=== PATIENT | male | born 1980 | race Caucasian/White ===

== ENCOUNTER 2024-01-15 17:35 | Inpatient (IN) | payer BC ==
--- NOTE | 2024-01-15 18:02 | ED ---
Chest Pain HPI - General Chief Complaint: Chest Pain Stated Complaint: Chest pain/R leg pain Time Seen by Provider: 01/15/24 17:59 Source: patient Mode of arrival: ambulatory Limitations: no limitations - History of Present Illness Initial Comments: This patient is a 43-year-old man who presents for evaluation of substernal chest pain that started last night was present for hours and then resolved but recurred this morning. Patient describes it as a tight or squeezing feeling it is now constant. He has not noted worsening or relieving factors. He also has some pain and feels that his right ankle is swollen. Patient denies any injury. He states that he had similar chest pain about a week ago and was seen at [facility] and they were not able to give him an answer. History notable for having an 85% lesion of the LAD which was stented in the early at the [facility]. Patient states he smokes about 1 pack of cigarettes per we ek. There is family history of cardiac disease. MD Complaint: chest pain Onset/Timin -: hour(s) Onset: during rest Pain Location: left chest Pain Radiation: none Severity: severe Quality: tightness Consistency: constant Improves With: nothing Worsens With: nothing Other Symptoms: other (Left leg pain and swelling) Treatments Prior to Arrival: none - Related Data Home Medications Medication Instructions Recorded Confirmed Albuterol Inhaler [Ventolin Hfa 2 puff INHALATION RT-Q6H PRN 01/15/24 01/15/24 Inhaler] Aspirin 81 mg PO DAILY 01/15/24 01/15/24 Atorvastatin Calcium [Lipitor] 40 mg PO HS 01/15/24 01/15/24 Metoprolol Tartrate [Lopressor] 25 mg PO BID 01/15/24 01/15/24 PARoxetine [Paxil] 20 mg PO DAILY 01/15/24 01/15/24 lisinopriL [Zestril] 5 mg PO DAILY 01/15/24 01/15/24 Previous Rx's Medication Instructions Recorded Nitroglycerin Sl Tabs [Nitrostat] 0.4 mg SUBLINGUAL Q5M PRN 10 Days 01/16/24 #10 tab Colchicine [Colcrys] 0.6 mg PO DAILY 30 Days #30 each 01/19/24 Melatonin 5 mg PO HS tab 01/19/24 Pantoprazole [Protonix] 40 mg PO AC-BRKFST 30 Days #30 tab 01/19/24 methylPREDNISolone Dose Pack 16 mg PO DAILY 5 Days #1 tab 01/19/24 [Medrol Dose Pack] Allergies Allergy/AdvReac Type Severity Reaction Status Date / Time Sulfa (Sulfonamide Allergy Anaphylaxis Verified 01/15/24 21:11 Antibiotics) Review of Systems ROS Statement: Those systems with pertinent positive or pertinent negative responses have been documented in the HPI. ROS Other: All systems not noted in ROS Statement are negative. Constitutional: Denies: fever, chills Respiratory: Denies: cough, dyspnea Cardiovascular: Reports: as per HPI, chest pain, edema. Denies: palpitations, syncope Gastrointestinal: Denies: abdominal pain, nausea, vomiting, diarrhea Genitourinary: Denies: dysuria, hematuria Musculoskeletal: Reports: as per HPI, myalgia. Denies: back pain Skin: Denies: rash Neurological: Denies: headache, weakness, numbness EKG Findings - EKG Results: EKG: interpreted by ERMD, sinus rhythm, normal axis, normal QRS EKG shows: tachycardia (Rate 111 bpm) - Blocks, Wake, Hypertrophy, ST Abn: Repolarization changes or abnormalities: nonspecific abnormality, ST segment, and/or T wave Past Medical History Past Medical History: Hypertension Additional Past Medical History / Comment(s): hepatitis C History of Any Multi-Drug Resistant Organisms: None Reported Past Surgical History: Heart Catheterization With Stent Additional Past Surgical History / Comment(s): spinal surgery Past Psychological History: No Psychological Hx Reported Smoking Status: Current some day smoker, Vaper Past Alcohol Use History: Abuse Past Drug Use History: Cocaine - Past Family History Father Family Medical History: Coronary Artery Disease (CAD) Additional Family Medical History / Comment(s): CABG triple bypass Mother Family Medical History: Diabetes Mellitus General Exam Limitations: no limitations General appearance: alert, in no apparent distress Head exam: Present: atraumatic, normocephalic Eye exam: Present: normal appearance. Absent: scleral icterus, conjunctival injection ENT exam: Present: normal oropharynx Neck exam: Present: normal inspection Respiratory exam: Present: normal lung sounds bilaterally. Absent: respiratory distress, wheezes, rales, rhonchi, stridor, accessory muscle use Cardiovascular Exam: Present: regular rate, normal rhythm, normal heart sounds. Absent: systolic murmur, diastolic murmur, rubs, gallop GI/Abdominal exam: Present: soft. Absent: distended, tenderness, guarding, rebound, rigid, mass Extremities exam: Present: normal inspection, normal capillary refill. Absent: pedal edema, calf tenderness Back exam: Present: normal inspection. Absent: CVA tenderness (R), CVA tenderness (L) Neurological exam: Present: alert Skin exam: Present: warm, dry, intact, normal color. Absent: rash Course Vital Signs 01/15/24 01/15/24 01/15/24 17:51 18:23 18:40 Temperature 98.2 F Pulse Rate 106 H 104 H 104 H Pulse Rate [ Pulse Oximetery ] Respiratory 18 18 16 Rate Blood Pressure 152/123 133/103 126/86 Blood Pressure [Left Arm] O2 Sat by Pulse 96 96 97 Oximetry 01/15/24 01/16/24 01/16/24 23:24 02:53 04:24 Temperature Pulse Rate 86 62 71 Pulse Rate [ Pulse Oximetery ] Respiratory 18 16 18 Rate Blood Pressure 126/92 132/94 121/82 Blood Pressure [Left Arm] O2 Sat by Pulse 97 98 96 Oximetry 01/16/24 01/16/24 06:06 07:00 Temperature 98.1 F Pulse Rate 64 66 Pulse Rate [ 63 Pulse Oximetery ] Respiratory 18 16 Rate Blood Pressure 115/84 118/74 Blood Pressure 145/80 [Left Arm] O2 Sat by Pulse 98 94 L Oximetry Chest Pain MDM - MDM The patient had chest x-ray that I interpreted as negative for acute infiltrate, pneumothorax, congestive heart failure Was pt. sent in by a medical professional or institution ([facility], NURSE WOUND, urgent care, hospital, or skilled nursing...) When possible be specific @ -[No] Did you speak to anyone other than the patient for history (EMS, parent, family, police, friend...)? What history was obtained from this source @ -[No] Did you review nursing and triage notes (agree or disagree)? Why? @ -[I reviewed and agree with nursing and triage notes] Were old charts reviewed (outside hosp., previous admission, EMS record, old EKG, old radiological studies, urgent care reports/EKG's, skilled nursing records)? Report findings @ -[No old charts were reviewed] Differential Diagnosis (chest pain, altered mental status, abdominal pain women, abdominal pain men, vaginal bleeding, weakness, fever, dyspnea, syncope, headache, dizziness, GI bleed, back pain, seizure, CVA, palpatations, mental health, musculoskeletal)? @ -[Differential Chest Pain: Stable Angina, Unstable Angina, STEMI, NSTEMI Aortic Dissection, Pneumothorax, Musculoskeletal, Esophageal Spasm GERD, Cholecystitis, Pancreatitis, Zoster, this is not meant to be an all-inclusive list. EKG interpreted by me (3pts min.). @ -[I interpreted as above] X-rays interpreted by me (1pt min.). @ -[I interpreted as above CT interpreted by me (1pt min.). @ -[None done] U/S interpreted by me (1pt. min.). @ -[None done] What testing was considered but not performed or refused? (CT, X-rays, U/S, labs)? Why? @ -[None] What meds were considered but not given or refused? Why? @ -[None] Did you discuss the management of the patient with other professionals (professionals i.e. , PA, NURSE WOUND, lab, RT, psych nurse, social media content specialist, trimming operator, teacher, military source operations officer, immigration case worker)? Give summary @ -[Case discussed with admitting physician and treatment recommendations incorporated Was smoking cessation discussed for >3mins.? @ -[Yes Was critical care preformed (if so, how long)? @ -[No] Were there social determinants of health that impacted care today? How? (Homelessness, low income, unemployed, alcoholism, drug addiction, transportation, low edu. Level, literacy, decrease access to med. care, detention, rehab)? @ -[No] Was there de-escalation of care discussed even if they declined (Discuss DNR or withdrawal of care, Hospice)? DNR status @ -[No] What co-morbidities impacted this encounter? (DM, HTN, Smoking, COPD, CAD, Cancer, CVA, ARF, Chemo, Hep., AIDS, mental health diagnosis, sleep apnea, morbid obesity)? @ -[Previous CAD, smoking Was patient admitted / discharged? Hospital course, mention meds given and route, prescriptions, significant lab abnormalities, going to OR and other pertinent info. @ -[Patient is 43-year-old man with history of previous CAD and stents. He is presenting with chest pain with concerning features and he does have initial negative workup. Will admit to have serial enzymes, telemetry monitoring, cardiology evaluation Undiagnosed new problem with uncertain prognosis? @ -[No] Drug Therapy requiring intensive monitoring for toxicity (Heparin, Nitro, Insulin, Cardizem)? @ -[No] Were any procedures done? @ -[No] Diagnosis/symptom? @ -[Acute chest pain Acute, or Chronic, or Acute on Chronic? @ -[Acute Uncomplicated (without systemic symptoms) or Complicated (systemic symptoms)? @ -[Uncomplicated Side effects of treatment? @ -[No] Exacerbation, Progression, or Severe Exacerbation? @ -[No] Poses a threat to life or bodily function? How? (Chest pain, [place], [place], pneumonia, PE, COPD, DKA, ARF, appy, cholecystitis, CVA, Diverticulitis, Homicidal, Suicidal, threat to staff... and all critical care pts) @ -[Possibly, requires further evaluation Disposition Clinical Impression: Chest pain Disposition: ADMITTED IP TO THIS HOSP Condition: Good Is patient prescribed a controlled substance at d/c from ED?: No
[2024-01-15] MEDS: ASPIRIN 81 MG PO STA (18:11)
[2024-01-15] MEDS: NITROGLYCERIN SL TABS 0.4 MG TAB SUBLINGUAL STA (18:12)
[2024-01-15 18:16] LABS: Basophils # (A) 0.1 k/uL (0-0.2); Basophils % (A) 1 %; Eosinophils # (A) 0.2 k/uL (0-0.7); Eosinophils % (A) 2 %; HGB 14.6 gm/dL (13.0-17.5); Lymphocytes % (A) 26 %; MCH 29.5 pg (25.0-35.0); MCHC 33.2 g/dL (31.0-37.0); Mean Platelet Volume 6.9; Monocytes # (A) 0.4 k/uL (0-1.0); Monocytes % (A) 5 %; Neutrophils # (A) 4.8 k/uL (1.3-7.7); Neutrophils % (A) 64 %; Platelet Count 263 k/uL (150-450); RBC 4.94 m/uL (4.30-5.90); RDW 12.7 % (11.5-15.5); WBC 7.5 k/uL (3.8-10.6)
[2024-01-15] MEDS ORDERED: ASPIRIN 81 MG PO STA (18:25)
[2024-01-15] MEDS ORDERED: NITROGLYCERIN SL TABS 0.4 MG TAB SUBLINGUAL STA (18:25)
[2024-01-15 18:32] LABS: INR 0.9 (<1.2); Partial Thromboplastin Time 24.5 sec (22.0-30.0); Prothrombin Time 10.2 sec (10.0-12.5)
[2024-01-15] MEDS: MORPHINE SULFATE 4 MG/ML SYRINGE IV STA (18:34)
[2024-01-15] MEDS: METOPROLOL TARTRATE 25 MG TAB PO STA (18:36)
[2024-01-15 18:38] LABS: ALT 30 U/L (4-49); AST 23 U/L (17-59); African American GFR (CKD) >90 (>60 ml/min/1.73 sqM); Albumin 4.8 g/dL (3.5-5.0); Alkaline Phosphatase 68 U/L (38-126); Anion Gap 12 mmol/L; Blood Urea Nitrogen 10 mg/dL (9-20); Calcium 9.5 mg/dL (8.4-10.2); Carbon Dioxide 27 mmol/L (22-30); Chloride 101 mmol/L (98-107); Glucose 145 mg/dL (74-99); Magnesium 1.6 mg/dL (1.6-2.3); Non-African American GFR(CKD) >90 (>60 ml/min/1.73 sqM); Potassium 3.9 mmol/L (3.5-5.1); Sodium 140 mmol/L (137-145); Total Bilirubin 0.5 mg/dL (0.2-1.3); Total Protein 7.8 g/dL (6.3-8.2)
[2024-01-15 18:45] LABS: NT-Pro-B-Type Natriuretic Pept 53 pg/mL
--- NOTE | 2024-01-15 19:00 | XR ---
EXAMINATION TYPE: XR chest 2V DATE OF EXAM: 01/15/2024 COMPARISON: NONE HISTORY: Chest pain TECHNIQUE: Frontal and lateral views of the chest are obtained. FINDINGS: There is no focal air space opacity, pleural effusion, or pneumothorax seen. The cardiac silhouette size is within normal limits. The osseous structures are intact. IMPRESSION: No acute cardiopulmonary process.
[2024-01-15] MEDS: MAG HYDROX/AL HYDROX/SIMETH 30 ML, HYOSCYAMINE ELIXIR 10 ML, LIDOCAINE VISCOUS 2% 10 ML PO STA (19:57)
--- NOTE | 2024-01-15 21:05 | US ---
EXAMINATION TYPE: US venous doppler duplex LE RT DATE OF EXAM: 01/15/2024 8:55 PM COMPARISON: NONE CLINICAL INDICATION: Male, 43 years old with history of calf pain; pain in ankle and going up leg, no swelling, no h/o dvt SIDE PERFORMED: Right TECHNIQUE: The lower extremity deep venous system is examined utilizing real time linear array sonog sherri with graded compression, doppler sonography and color-flow sonography. VESSELS IMAGED: Common Femoral Vein Deep Femoral Vein Greater Saphenous Vein * Femoral Vein Popliteal Vein Small Saphenous Vein * Proximal Calf Veins (* superficial vessels) The deep venous system of the right lower extremity from the common femoral vein to the proximal calf veins is patent and compressible augmentable flow and normal waveforms. IMPRESSION: No evidence of right lower extremity DVT from the right common femoral vein to the proximal calf vein s.
[2024-01-15] MEDS ORDERED: ALBUTEROL NEBULIZED 2.5 MG/3 ML INHALATION PRN (22:28)
[2024-01-15] MEDS: HYDROmorphone 0.5 MG/0.5 ML SYRINGE IVP STA (23:19)
--- NOTE | 2024-01-16 02:45 | HP ---
HISTORY AND PHYSICAL HISTORY OF PRESENT ILLNESS: This is a 43-year-old white male who came in with substernal chest pain that he stated was present for hours last night, resolved but recurred again this morning, feeling chest tightness. His right ankle is swollen, denies any injury. He had chest pain a week ago, he went to [facility] . Had 85% lesion of the LAD, was stented in early at [facility]. Smokes 1 pack of cigarettes a week. FAMILY HISTORY: Cardiac disease, chest pain is during rest in his left chest, severe, tightness, constant, improves with nothing, worsened by nothing. No hemoptysis. REVIEW OF SYSTEMS: A 14-point review of systems otherwise negative. ALLERGIES: Sulfa. EKG shows sinus rhythm, normal QRS, tachycardic. PAST MEDICAL HISTORY: Hypertension, hepatitis C, heart catheterization with stents 20 years ago. SOCIAL HISTORY: Current everyday smoker and abuses alcohol and cocaine in the past. PHYSICAL EXAMINATION: VITAL SIGNS: Pulse is 104 to 106, temp 98.2, respiratory rate 16 to 18, blood pressure 133 to 152 over 103 to 123, and O2 96. RESPIRATORY: Transmitted upper sounds. CARDIOVASCULAR: S1, S2. ABDOMEN: Soft, nontender. BACK: Normal range of motion. HEENT: Pupils equal, round, reactive. NECK: Supple. GENERAL: Well developed, well nourished white male. ASSESSMENT: Atypical chest pain, rule out OR. D-dimer is negative, so it probably rules out a PE. We will do serial troponins, get Cardiology consult. Home medications have been restarted. He had a venous Doppler study on admission, which shows no right swollen DVT, so that is negative. His chest x-ray shows negative with Cardiology. Prognosis guarded. MMODL / IJN: [id number] /
[2024-01-16] MEDS: HYDROmorphone 0.5 MG/0.5 ML SYRINGE IVP PRN (02:56)
[2024-01-16] MEDS: NITROGLYCERIN SL TABS 0.4 MG TAB SUBLINGUAL PRN (06:41)
[2024-01-16] MEDS ORDERED: ASPIRIN 81 MG PO SCH (09:00)
--- NOTE | 2024-01-16 10:06 | P.CRDCN ---
History of Present Illness Consult date: 01/16/24 Consult reason: chest pain History of present illness: History of present illness: This is a 43-year-old male with past medical history of coronary artery disease with stenting in the LAD, hypertension, hyperlipidemia, tobacco use and dependence, history of cocaine use. We have been asked to evaluate the patient for chest pain. Patient gives history that he has ongoing problems with chest pain went to [facility] last week and was given some medications that seem to help only a little bit. Nitroglycerin only dulls the pain. The pain is back again and he presented to [facility]. He also states that he had a stent done in the LAD in 2020 at [facility]. He did not follow-up with the pantograph setter after that. He states he has had a total of 3 cardiac catheterizations in 3 different locations. He cannot recall what was done at [facility] last week. He also complains of pain in his leg. He is a smoker 1 pack/month. He states he has not had alcohol intake for 1 year. He stopped taking drugs, cocaine, 2 years ago. EKG sinus rhythm with no acute ST changes. Chest x-ray: No acute process. Ultrasound Doppler of the right lower extremity is negative for DVT. CBC, INR, D-dimer, electrolytes, renal function all normal. Liver function test are normal. Troponin negative x 3. Glucose 145 with hemoglobin A1c 6.5. proBNP 53. Magnesium 1.6. Home cardiac medications: Aspirin 81 mg daily, atorvastatin 40 mg at bedtime, lisinopril 5 mg daily, Lopressor 25 mg twice daily. Echocardiogram performed 2 weeks ago at [facility] revealed LVEF 55 to 60%, mild mitral regurgitation, trace tricuspid regurgitation. No pericardial effusion. Cardiac catheterization performed at [facility] 2 weeks ago reveals patent stent in the LAD with mild obstructive disease in the first diagonal branch. Mild disease in the mid RCA. No obstructive disease in the left circumflex. Right dominance. This was performed by Dr. Gonzalez. Review Of Systems: At the time of my exam: CONSTITUTIONAL: Denies fever or chills. HEENT: Denies blurred vision, vision changes, or eye pain. Denies hemoptysis CARDIOVASCULAR: Reports chest pain. Denies orthopnea. Denies PND. Denies palpitations RESPIRATORY: Denies shortness of breath. GASTROINTESTINAL: Denies abdominal pain. Denies nausea or vomiting. HEMATOLOGIC: Denies bleeding disorders. GENITOURINARY: Denies any blood in urine. SKIN: Denies pruitis. Denies rash. Physical examination: Gen: This is a obese 43-year-old male in no acute distress VS: reviewed blood pressure 145/80, heart rate 63, pulse ox 94% on room air. HEENT: Head is atraumatic, normocephalic. Pupils equal, round. Sclerae is anicteric. NECK: Supple. No JVD. LUNGS: Clear to auscultation. No wheezes or rhonchi. No intercostal retractions. HEART: Regular rate and rhythm. No murmur. ABDOMEN: Soft No tenderness. EXTREMITIES: No pedal edema. No calf tenderness. NEUROLOGICAL: Patient is awake, alert and oriented x3. Assessment: Noncardiac chest pain, acute coronary syndrome ruled out History of coronary artery disease with stenting of the LAD Hypertension Hyperlipidemia Tobacco use and dependence Plan: Continue patient's home cardiac medications No further cardiac workup at this time Cardiology will sign off this case and follow on an as-needed basis. Please reconsult for any new concerns. Patient may follow-up with his pantograph setter in one to 2 weeks. Thank you kindly for this consultation. Nurse practitioner note has been reviewed, I agree with documented findings and plan of care. Patient was seen and examined. Past Medical History Past Medical History: Hypertension Additional Past Medical History / Comment(s): hepatitis C History of Any Multi-Drug Resistant Organisms: None Reported Past Surgical History: Heart Catheterization With Stent Additional Past Surgical History / Comment(s): spinal surgery Past Psychological History: No Psychological Hx Reported Smoking Status: Current some day smoker, Vaper Past Alcohol Use History: Abuse Past Drug Use History: Cocaine Medications and Allergies Home Medications Medication Instructions Recorded Confirmed Type Albuterol Inhaler [Ventolin Hfa 2 puff INHALATION RT-Q6H PRN 01/15/24 01/15/24 History Inhaler] Aspirin 81 mg PO DAILY 01/15/24 01/15/24 History Atorvastatin Calcium [Lipitor] 40 mg PO HS 01/15/24 01/15/24 History Metoprolol Tartrate [Lopressor] 25 mg PO BID 01/15/24 01/15/24 History PARoxetine [Paxil] 20 mg PO DAILY 01/15/24 01/15/24 History lisinopriL [Zestril] 5 mg PO DAILY 01/15/24 01/15/24 History Allergies Allergy/AdvReac Type Severity Reaction Status Date / Time Sulfa (Sulfonamide Allergy Anaphylaxis Verified 01/15/24 21:11 Antibiotics) Physical Exam Vitals: Vital Signs Temp Pulse Resp BP Pulse Ox 01/16/24 07:00 66 18 118/74 97 01/16/24 06:06 64 18 115/84 98 01/16/24 04:24 71 18 121/82 96 01/16/24 02:53 62 16 132/94 98 01/15/24 23:24 86 18 126/92 97 01/15/24 18:40 104 H 16 126/86 97 01/15/24 18:23 104 H 18 133/103 96 01/15/24 17:51 98.2 F 106 H 18 152/123 96 Intake and Output 01/15/24 01/16/24 01/16/24 22:59 06:59 14:59 Other: Weight 120.202 kg Results 01/15/24 18:06 01/15/24 18:06 Cardiac Enzymes 01/15/24 01/15/24 01/15/24 Range/Units 18:06 18:06 21:36 AST 23 (17-59) U/L Troponin I <0.012 <0.012 (0.000-0.034) ng/mL 01/16/24 Range/Units 00:00 AST (17-59) U/L Troponin I <0.012 (0.000-0.034) ng/mL Coagulation 01/15/24 Range/Units 18:06 PT 10.2 (10.0-12.5) sec APTT 24.5 (22.0-30.0) sec CBC 01/15/24 Range/Units 18:06 WBC 7.5 (3.8-10.6) k/uL RBC 4.94 (4.30-5.90) m/uL Hgb 14.6 (13.0-17.5) gm/dL Hct 44.0 (39.0-53.0) % Plt Count 263 (150-450) k/uL Comprehensive Metabolic Panel 01/15/24 Range/Units 18:06 Sodium 140 (137-145) mmol/L Potassium 3.9 (3.5-5.1) mmol/L Chloride 101 (98-107) mmol/L Carbon Dioxide 27 (22-30) mmol/L BUN 10 (9-20) mg/dL Creatinine 0.80 (0.66-1.25) mg/dL Glucose 145 H (74-99) mg/dL Calcium 9.5 (8.4-10.2) mg/dL AST 23 (17-59) U/L ALT 30 (4-49) U/L Alkaline Phosphatase 68 (38-126) U/L Total Protein 7.8 (6.3-8.2) g/dL Albumin 4.8 (3.5-5.0) g/dL Current Medications Generic Name Dose Route Start Last Admin Trade Name Freq PRN Reason Stop Dose Admin Albuterol Sulfate 2.5 mg 01/15/24 22:28 Albuterol Nebulized 2.5 Mg/3 Ml INHALATION RT-Q6H PRN Shortness Of Breath Aspirin 325 mg 01/16/24 09:00 Aspirin 325 Mg Tab PO DAILY [facility] Atorvastatin Calcium 40 mg 01/16/24 21:00 Atorvastatin 40 Mg Tab PO HS JIN Hydromorphone HCl 0.5 mg 01/16/24 02:51 01/16/24 02:56 Hydromorphone 0.5 Mg/0.5 Ml Syringe IVP 0.5 mg Q4HR PRN Administration Pain Lisinopril 5 mg 01/16/24 09:00 Lisinopril 5 Mg Tab PO DAILY JIN Metoprolol Tartrate 25 mg 01/16/24 09:00 Metoprolol Tartrate 25 Mg Tab PO BID JIN Nitroglycerin 0.4 mg 01/15/24 20:18 01/16/24 06:41 Nitroglycerin Sl Tabs 0.4 Mg Tab SUBLINGUAL 0.4 mg Q5M PRN Administration Chest Pain Paroxetine HCl 20 mg 01/16/24 09:00 Paroxetine 20 Mg Tab PO DAILY [facility] Intake and Output 01/15/24 01/16/24 01/16/24 22:59 06:59 14:59 Other: Weight 120.202 kg 01/15/24 18:06 01/15/24 18:06
[2024-01-16] MEDS: METOPROLOL TARTRATE 25 MG TAB PO SCH (10:08)
[2024-01-16] MEDS: ASPIRIN 325 MG TAB PO SCH (10:08)
[2024-01-16] MEDS: PARoxetine 20 MG TAB PO SCH (10:09)
[2024-01-16] MEDS: lisinopriL 5 MG TAB PO SCH (10:11)
[2024-01-16] MEDS ORDERED: MAG HYDROX/AL HYDROX/SIMETH 30 ML CUP PO PRN (12:06)
[2024-01-16 12:21] LABS: Glucose,Whole Blood 130 mg/dL (70-110)
--- NOTE | 2024-01-16 13:43 | CT ---
EXAMINATION TYPE: CT angio chest DATE OF EXAM: 01/16/2024 1:35 PM COMPARISON: None HISTORY: intractable chest pain CT DLP: 600.9 mGycm Automated exposure control for dose reduction was used. CONTRAST: CTA scan of the thorax is performed with IV Contrast, patient injected with 100 mL of Isovue 370, pul monary embolism protocol FINDINGS: There is a 5 mm right lower lobe pulmonary nodule otherwise no suspicious lung masses or nodules are seen. There is no abnormal airspace/consolidative density or abnormal interstitial density. There is no pleural effusion, pleural thickening or pneumothorax. The great vessels the chest are normal is no mediastinal, hilar or axillary adenopathy. There are no filling defects within the pulmonary arteries or branches. There is no thoracic aortic a neurysm. Limited scanning through the upper abdomen reveals no gross abnormality. The osseous structures are intact. IMPRESSION: 1. No evidence of pulmonary embolism. 2. No acute cardiopulmonary disease. 3. No thoracic aortic aneurysm. 4. 5 mm right lower lobe pulmonary nodule which is likely benign IMPRESSION:
--- NOTE | 2024-01-16 14:30 | P.PN ---
Subjective Progress Note Date: 01/16/24 * 43-year-old male with past medical history of coronary artery disease with stenting in the LAD, hypertension, hyperlipidemia, tobacco use and dependence, history of cocaine use. * Patient gives history that he has ongoing problems with chest pain went to [facility] last week and was given some medications that seem to help only a little bit. Nitroglycerin only dulls the pain. The pain is back again and he presented to [facility]. He also states that he had a stent done in the LAD in 2020 at [facility]. He did not follow-up with the laboratory phlebotomist after that. He states he has had a total of 3 cardiac catheterizations in 3 different locations. He cannot recall what was done at [facility] last week. He also complains of pain in his leg. He is a smoker 1 pack/month. He states he has not had alcohol intake for 1 year. He stopped taking drugs, cocaine, 2 years ago. * EKG sinus rhythm with no acute ST changes. * Chest x-ray: No acute process. * Ultrasound Doppler of the right lower extremity is negative for DVT. * CBC, INR, D-dimer, electrolytes, renal function all normal. Liver function test are normal. Troponin negative x 3. Glucose 145 with hemoglobin A1c 6.5. proBNP 53. Magnesium 1.6. * Echocardiogram performed 2 weeks ago at [facility] revealed LVEF 55 to 60%, mild mitral regurgitation, trace tricuspid regurgitation. No pericardial effusion. * Cardiac catheterization performed at [facility] 2 weeks ago reveals patent stent in the LAD with mild obstructive disease in the first diagonal branch. Mild disease in the mid RCA. No obstructive disease in the left circumflex. Right dominance. This was performed by Dr. Gonzalez. * 01/16/24 : Patient had serial troponins obtained, HbA1c was noted to be elevated at 6.5. Serial troponins obtained that were negative. Patient counseled regarding weight loss.CT chest negative for pulmonary embolism continue to have postprandial retrosternal pain surgery consulted for EGD PHYSICAL EXAMINATION: GENERAL: The patient is alert and oriented x3, not in any acute distress. Well developed, well nourished. HEENT: Pupils are round and equally reacting to light. EOMI. CARDIOVASCULAR: S1 and S2 present. No murmurs, rubs, or gallops. PULMONARY: Chest is clear to auscultation, no wheezing or crackles. ABDOMEN: Soft, nontender, nondistended, normoactive bowel sounds. No palpable organomegaly. MUSCULOSKELETAL: right ankle pain, range of motion limited EXTREMITIES: No cyanosis, clubbing, or pedal edema. NEUROLOGICAL: Gross neurological examination did not reveal any focal deficits. SKIN: No rashes. Assessment and plan Coronary artery disease with chest pain ACS ruled out Hypertension Hyperlipidemia New onset diabetes mellitus type 2 Tobacco use Continue cardiac medications, patient cleared for discharge by cardiology Regards to new onset diabetes HbA1c 6.5 lifestyle modification recommended, blood glucose 145 will recommend outpatient follow-up with primary care physician to discuss initiation of oral medications including metformin Accu-Cheks before meals at bedtime initiated X-ray right ankle ordered for ankle pain Objective - Vital Signs Vital signs: Vital Signs Temp 98.5 F 01/16/24 14:12 Pulse 54 L 01/16/24 14:12 Resp 15 01/16/24 14:12 BP 125/71 01/16/24 14:12 Pulse Ox 100 01/16/24 14:12 FiO2 Intake & Output 01/15/24 01/16/24 01/16/24 18:59 06:59 18:59 Weight 120.202 kg 120.202 kg Other: # Voids 1 - Labs CBC & Chem 7: 01/15/24 18:06 01/15/24 18:06 Labs: Abnormal Lab Results - Last 24 Hours (Table) 01/15/24 01/15/24 01/16/24 Range/Units 18:06 23:33 12:20 Glucose 145 H (74-99) mg/dL POC Glucose (mg/dL) 130 H (70-110) mg/dL Hemoglobin A1c 6.5 H (<=6.0) %
[2024-01-16] MEDS ORDERED: DEXTROSE 50% SYRINGE 50 ML IVP PRN ×2 (15:43)
--- NOTE | 2024-01-16 16:31 | XR ---
EXAMINATION TYPE: XR ankle complete RT DATE OF EXAM: 01/16/2024 COMPARISON: None HISTORY: Ankle pain TECHNIQUE: Right ankle is examined in 3 projections. FINDINGS: There is a screw present within the medial malleolus into the metaphyseal tibia. Diastases of the medial malleolar fracture is present. This is age indeterminant although there is suggestion o f a smooth cortex suggesting this may be old. There is some mild soft tissue swelling over the medial malleolus. The ankle mortise appears intact. Correlate with the history. IMPRESSION: 1. There may be a nonunion of the medial malleolar fracture present. Correlate with the history. 2. Mild soft tissue swelling over the medial malleolus.
[2024-01-16 16:33] LABS: Chol/HDL Ratio 3.33 Ratio; LDL Cholesterol,Calculated 80.1 mg/dL (0.0-131.0)
[2024-01-16] MEDS: PANTOPRAZOLE 40 MG/10 ML VIAL IVP SCH (17:31)
--- NOTE | 2024-01-16 17:40 | CA ---
Transthoracic Echo Report Name: Roque Ortiz Age: 43 Gender: M : 1980 Exam Date: 01/16/2024 11:35 Exam Location: [place] [facility] Ht (in): 74 Wt (lb): 265 Ordering Physician: Wei Palencia MD Attending/Referring Phys: [employer] Operator Charmaine Garcia RDCS Procedure CPT: Indications: CAD Cardiac Hx: Technical Quality: Good Contrast 1: Total Dose (mL): Contrast 2: Total Dose (mL): MEASUREMENTS (Male / Female) Normal Values 2D ECHO LV Diastolic Diameter PLAX 5.6 cm 4.2 - 5.9 / 3.9 - 5.3 cm LV Systolic Diameter PLAX 4.3 cm IVS Diastolic Thickness 1.2 cm 0.6 - 1.0 / 0.6 - 0.9 cm LVPW Diastolic Thickness 1.0 cm 0.6 - 1.0 / 0.6 - 0.9 cm LV Relative Wall Thickness 0.4 RV Internal Dim ED PLAX 3.6 cm LA Systolic Diameter LX 4.2 cm 3.0 - 4.0 / 2.7 - 3.8 cm LV Diastolic Volume MOD BP 110.9 cm??? 67 - 155 / 56 - 104 cm??? LV Systolic Volume MOD BP 50.7 cm??? / 19 - 49 cm??? LV Ejection Fraction MOD BP 54.3 % >= 55 % LV Cardiac Index MOD BP 1588.3 cm???/min???m??? LV Diastolic Volume MOD 4C 107.4 cm??? LV Systolic Volume MOD 4C 50.6 cm??? LV Ejection Fraction MOD 4C 52.8 % LV Cardiac Index MOD 4C 1496.3 cm???/min???m??? LV Diastolic Length 4C 9.0 cm LV Systolic Length 4C 7.6 cm LV Diastolic Volume MOD 2C 109.7 cm??? LV Systolic Volume MOD 2C 49.8 cm??? LV Ejection Fraction MOD 2C 54.6 % LV Cardiac Index MOD 2C 1579.7 cm???/min???m??? LV Diastolic Length 2C 8.4 cm LV Systolic Length 2C 7.8 cm LA Volume 65.1 cm??? - / 22 - 52 cm??? LA Volume Index 25.6 cm???/m??? 16 - 28 cm???/m??? M-MODE Aortic Root Diameter MM 3.3 cm MV E Point Septal Separation 0.5 cm AV Cusp Separation MM 2.5 cm DOPPLER AV Peak Velocity 161.2 cm/s AV Peak Gradient 10.4 mmHg MV Area PHT 3.4 cm??? Mitral E Point Velocity 82.5 cm/s Mitral A Point Velocity 83.0 cm/s Mitral E to A Ratio 1.0 MV Deceleration Time 225.0 ms FINDINGS Left Ventricle Left ventricular ejection fraction is estimated at 55-60 %. Left ventricular cavity size normal. Mildly increased septal wall thickness. Right Ventricle Mild right ventricular dilatation. Right Atrium Normal right atrial size. Left Atrium Mildly increased left atrial diameter. Mildly increased left atrial volume. Mildly increased left atrial area. Mitral Valve Structurally normal mitral valve. No mitral stenosis, regurgitation or prolapse. Aortic Valve Trileaflet aortic valve. No aortic valve stenosis or regurgitation. Tricuspid Valve Structurally normal tricuspid valve. No tricuspid stenosis, regurgitation or prolapse. Pulmonic Valve Structurally normal pulmonic valve. Trace pulmonic regurgitation. Pericardium No pericardial effusion. Aorta Normal size aortic root and proximal ascending aorta. CONCLUSIONS Normal LV function Previewed by: Dr. Marcin Rodriguez MD (Electronically Signed) Final Date: 16 January 2024 17:39
[2024-01-16 18:05] LABS: Glucose,Whole Blood 100 mg/dL (70-110)
[2024-01-16] MEDS: INSULIN ASPART (NovoLOG) 100 UNIT/ML VIAL SQ SCH (18:23)
[2024-01-16] MEDS: traMADol-ACETAMINOP 37.5-325MG 1 EACH TAB PO PRN (18:52)
[2024-01-16 20:53] LABS: Glucose,Whole Blood 168 mg/dL (70-110)
[2024-01-16] MEDS: ATORVASTATIN 40 MG TAB PO SCH (21:28)
[2024-01-17] MEDS: IBUPROFEN 400 MG TAB PO PRN (03:13)
[2024-01-17 05:53] LABS: Glucose,Whole Blood 128 mg/dL (70-110)
[2024-01-17] MEDS: PANTOPRAZOLE 40 MG TABLET PO SCH (06:09)
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
[2024-01-17 11:56] LABS: Glucose,Whole Blood 167 mg/dL (70-110)
--- NOTE | 2024-01-17 13:33 | P.PN ---
Subjective Progress Note Date: 01/17/24 * 43-year-old male with past medical history of coronary artery disease with stenting in the LAD, hypertension, hyperlipidemia, tobacco use and dependence, history of cocaine use. * Patient gives history that he has ongoing problems with chest pain went to [facility] last week and was given some medications that seem to help only a little bit. Nitroglycerin only dulls the pain. The pain is back again and he presented to [facility]. He also states that he had a stent done in the LAD in 2020 at [place]. He did not follow-up with the brass cleaner after that. He states he has had a total of 3 cardiac catheterizations in 3 different locations. He cannot recall what was done at [facility] last week. He also complains of pain in his leg. He is a smoker 1 pack/month. He states he has not had alcohol intake for 1 year. He stopped taking drugs, cocaine, 2 years ago. * EKG sinus rhythm with no acute ST changes. * Chest x-ray: No acute process. * Ultrasound Doppler of the right lower extremity is negative for DVT. * CBC, INR, D-dimer, electrolytes, renal function all normal. Liver function test are normal. Troponin negative x 3. Glucose 145 with hemoglobin A1c 6.5. proBNP 53. Magnesium 1.6. * Echocardiogram performed 2 weeks ago at [facility] revealed LVEF 55 to 60%, mild mitral regurgitation, trace tricuspid regurgitation. No pericardial effusion. * Cardiac catheterization performed at [facility] 2 weeks ago reveals patent stent in the LAD with mild obstructive disease in the first diagonal branch. Mild disease in the mid RCA. No obstructive disease in the left circumflex. Right dominance. This was performed by Dr. Gonzalez. * 01/16/24 : Patient had serial troponins obtained, HbA1c was noted to be elevated at 6.5. Serial troponins obtained that were negative. Patient counseled regarding weight loss.CT chest negative for pulmonary embolism continue to have postprandial retrosternal pain surgery consulted for EGD * 01/17/24: Patient seen and evaluated bedside, patient continues to complain of right ankle pain, prescription for walker provided, appreciate input from orthopedic. X-ray right ankle reviewed PHYSICAL EXAMINATION: GENERAL: The patient is alert and oriented x3, not in any acute distress. Well developed, well nourished. HEENT: Pupils are round and equally reacting to light. EOMI. CARDIOVASCULAR: S1 and S2 present. No murmurs, rubs, or gallops. PULMONARY: Chest is clear to auscultation, no wheezing or crackles. ABDOMEN: Soft, nontender, nondistended, normoactive bowel sounds. No palpable organomegaly. MUSCULOSKELETAL: right ankle pain, range of motion limited EXTREMITIES: No cyanosis, clubbing, or pedal edema. NEUROLOGICAL: Gross neurological examination did not reveal any focal deficits. SKIN: No rashes. 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 Will need to be monitored with correctional insulin since it can cause hypoglycemia * Regards to new onset diabetes HbA1c 6.5 lifestyle modification recommended, blood glucose 145 will recommend outpatient follow-up with primary care physician to discuss initiation of oral medications including metformin, continue correctional insulin while inpatient Accu-Cheks before meals at bedtime initiated * Regards to continuous retrosternal pain, recommend general surgery evaluation for EGD continue patient on Protonix Objective - Vital Signs Vital signs: Vital Signs Temp 97.9 F 01/17/24 07:00 Pulse 62 01/17/24 07:00 Resp 16 01/17/24 07:00 BP 122/72 01/17/24 07:00 Pulse Ox 97 01/17/24 07:00 FiO2 Intake & Output 01/16/24 01/17/24 01/17/24 18:59 06:59 18:59 Intake Total 240 Balance 240 Weight 120.202 kg Intake: Oral 240 Other: # Voids 3 2 - Labs CBC & Chem 7: 01/15/24 18:06 01/15/24 18:06 Labs: Abnormal Lab Results - Last 24 Hours (Table) 01/16/24 01/17/24 01/17/24 Range/Units 20:50 05:52 11:55 POC Glucose (mg/dL) 168 H 128 H 167 H (70-110) mg/dL Uric Acid (3.5-8.5) mg/dL 01/17/24 Range/Units 11:57 POC Glucose (mg/dL) (70-110) mg/dL Uric Acid 9.2 H (3.5-8.5) mg/dL
[2024-01-17] MEDS: methylPREDNISolone 4 MG TAB TAPER PO SCH (14:29)
[2024-01-17] MEDS: DICLOFENAC SODIUM GEL 50 GM TUBE TOPICAL SCH (14:30)
[2024-01-17 17:22] LABS: Glucose,Whole Blood 167 mg/dL (70-110)
[2024-01-17 21:29] LABS: Glucose,Whole Blood 271 mg/dL (70-110)
[2024-01-18 05:56] LABS: Glucose,Whole Blood 198 mg/dL (70-110)
[2024-01-18 09:36] LABS: Potassium 4.9 mmol/L (3.5-5.1)
[2024-01-18 09:39] LABS: African American GFR (CKD) >90 (>60 ml/min/1.73 sqM); Anion Gap 8 mmol/L; Blood Urea Nitrogen 14 mg/dL (9-20); C Reactive Protein 4.5 mg/dL (<1.0); Calcium 9.5 mg/dL (8.4-10.2); Carbon Dioxide 30 mmol/L (22-30); Chloride 99 mmol/L (98-107); Glucose 185 mg/dL (74-99); Non-African American GFR(CKD) >90 (>60 ml/min/1.73 sqM); Sodium 137 mmol/L (137-145)
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
--- NOTE | 2024-01-18 09:59 | P.PN ---
Subjective Progress Note Date: 01/18/24 Principal diagnosis: Right ankle pain The patient is a 43-year-old male who presented to the emergency department with chest pain 2 days ago.The patient had recent chest pain and was at [facility] last week. He is status post stent in 2020 at the [facility] [place] Orthopedics was consulted for further evaluation of his right ankle pain. He states that it started suddenly over the last couple days. He does have a history of a right medial malleolus ORIF with screw placement in 2000 or 2001 at [facility]. He states the ankle has been feeling well up until recently. There is no specific injury that patient can recall. The pain is mostly behind the ankle. He is unable to bear weight comfortably and has limited range of motion due to pain. He denies any recent infection. 01/17/2024: The patient states that the Motrin and pain medication really does not help his pain. He denies a history of gout but has had sudden onset leg pain that went away on its own in the past. He denies any fever or chills at this time. 01/18/2024: No changes today. He states the pain is about the same in the ankle. The CAM boot was delivered but he still has pain with putting weight into the ankle. Uric acid was elevated at 9.2. He was started on a Medrol Dosepak yesterday. Objective - Vital Signs Vital signs: Vital Signs Temp 98.0 F 01/18/24 07:00 Pulse 61 01/18/24 07:00 Resp 16 01/18/24 07:00 BP 138/83 01/18/24 07:00 Pulse Ox 98 01/18/24 07:00 FiO2 Intake & Output 01/17/24 01/18/24 01/18/24 18:59 06:59 18:59 Intake Total 598 Balance 598 Intake: Oral 598 Other: # Voids 2 2 - Exam The patient is a 43-year-old male in no acute distress. He is alert and oriented x 3. There are no open wounds or erythema to the ankle. Exam of the right ankle reveals moderate swelling to the lateral and medial aspect. There is minimal pain to the medial malleolus and no pain to the lateral malleolus. He is tender over the peroneal tendons on the lateral aspect of the ankle and moderately tender over the tendons on the medial side. There is more pain to the Achilles tendon. Achilles tendon is intact at this time. There is moderate tenderness to the ankle joint on palpation. He is able to move the ankle minimally due to guarding and pain. He is able to wiggle his toes. Neurological and circulatory status is intact. - Labs CBC & Chem 7: 01/15/24 18:06 01/18/24 07:07 Labs: Abnormal Lab Results - Last 24 Hours (Table) 01/17/24 01/17/24 01/17/24 Range/Units 11:55 11:57 17:20 Glucose (74-99) mg/dL POC Glucose (mg/dL) 167 H 167 H (70-110) mg/dL Uric Acid 9.2 H (3.5-8.5) mg/dL C-Reactive Protein (<1.0) mg/dL 01/17/24 01/18/24 01/18/24 Range/Units 21:28 05:55 07:07 Glucose 185 H (74-99) mg/dL POC Glucose (mg/dL) 271 H 198 H (70-110) mg/dL Uric Acid (3.5-8.5) mg/dL C-Reactive Protein 4.5 H (<1.0) mg/dL Assessment and Plan (1) Right ankle pain Current Visit: Yes Status: Acute Code(s): M25.571 - PAIN IN RIGHT ANKLE AND JOINTS OF RIGHT FOOT SNOMED Code(s): 684907495 (2) Right Achilles tendinitis Current Visit: Yes Status: Acute Code(s): M76.61 - ACHILLES TENDINITIS, RIGHT LEG SNOMED Code(s): 077819052851341 (3) Chest pain Current Visit: Yes Status: Acute Code(s): R07.9 - CHEST PAIN, UNSPECIFIED SNOMED Code(s): 02014451 Plan: The clinical and x-ray findings were discussed with the patient. The case was discussed with Dr. Armstrong. The patient uric acid was mildly elevated. He could benefit from gout medications such as colchicine or allopurinol. We will defer gout management to internal medicine. The patient's Achilles tendon also appears to be painful and flared up at this time. He should continue anti- inflammatories in the form of a Medrol Dosepak. Continue CAM boot for comfort. Continue rest, ice and/or heat to the right ankle. He states he is getting an EGD tomorrow. We will continue to follow the patient peripherally while he remains in the hospital.
[2024-01-18 11:59] LABS: Glucose,Whole Blood 144 mg/dL (70-110)
--- NOTE | 2024-01-18 12:01 | P.PN ---
Subjective Progress Note Date: 01/18/24 * 43-year-old male with past medical history of coronary artery disease with stenting in the LAD, hypertension, hyperlipidemia, tobacco use and dependence, history of cocaine use. * Patient gives history that he has ongoing problems with chest pain went to [facility] last week and was given some medications that seem to help only a little bit. Nitroglycerin only dulls the pain. The pain is back again and he presented to [facility]. He also states that he had a stent done in the LAD in 2020 at [facility] [place]. He did not follow-up with the assistant associate professor after that. He states he has had a total of 3 cardiac catheterizations in 3 different locations. He cannot recall what was done at [facility] last week. He also complains of pain in his leg. He is a smoker 1 pack/month. He states he has not had alcohol intake for 1 year. He stopped taking drugs, cocaine, 2 years ago. * EKG sinus rhythm with no acute ST changes. * Chest x-ray: No acute process. * Ultrasound Doppler of the right lower extremity is negative for DVT. * CBC, INR, D-dimer, electrolytes, renal function all normal. Liver function test are normal. Troponin negative x 3. Glucose 145 with hemoglobin A1c 6.5. proBNP 53. Magnesium 1.6. * Echocardiogram performed 2 weeks ago at [facility] revealed LVEF 55 to 60%, mild mitral regurgitation, trace tricuspid regurgitation. No pericardial effusion. * Cardiac catheterization performed at [facility] 2 weeks ago reveals patent stent in the LAD with mild obstructive disease in the first diagonal branch. Mild disease in the mid RCA. No obstructive disease in the left circumflex. Right dominance. This was performed by Dr. Gonzalez. * 01/16/24 : Patient had serial troponins obtained, HbA1c was noted to be elevated at 6.5. Serial troponins obtained that were negative. Patient counseled regarding weight loss.CT chest negative for pulmonary embolism continue to have postprandial retrosternal pain surgery consulted for EGD * 01/17/24: Patient seen and evaluated bedside, patient continues to complain of right ankle pain, prescription for walker provided, appreciate input from orthopedic. X-ray right ankle reviewed. * 01/18/24: Patient seen and evaluated bedside, patient continued to complain of right ankle pain given 1 dose of colchicine 1.2 mg, follow-up 0.6 mg of colchicine ordered as well. Continue on Medrol Dosepak. Surgery planning EGD during this hospitalization PHYSICAL EXAMINATION: GENERAL: The patient is alert and oriented x3, not in any acute distress. Well developed, well nourished. HEENT: Pupils are round and equally reacting to light. EOMI. CARDIOVASCULAR: S1 and S2 present. No murmurs, rubs, or gallops. PULMONARY: Chest is clear to auscultation, no wheezing or crackles. ABDOMEN: Soft, nontender, nondistended, normoactive bowel sounds. No palpable organomegaly. MUSCULOSKELETAL: right ankle pain, range of motion limited EXTREMITIES: No cyanosis, clubbing, or pedal edema. NEUROLOGICAL: Gross neurological examination did not reveal any focal deficits. SKIN: No rashes. 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 Will need to be monitored with correctional insulin since it can cause hypoglycemia * Regards to new onset diabetes HbA1c 6.5 lifestyle modification recommended, blood glucose 145 will recommend outpatient follow-up with primary care physician to discuss initiation of oral medications including metformin, continue correctional insulin while inpatient Accu-Cheks before meals at be dtime initiated * Regards to continuous retrosternal pain, recommend general surgery evaluation for EGD continue patient on Protonix Objective - Vital Signs Vital signs: Vital Signs Temp 98.0 F 01/18/24 07:00 Pulse 61 01/18/24 07:00 Resp 16 01/18/24 07:00 BP 138/83 01/18/24 07:00 Pulse Ox 98 01/18/24 07:00 FiO2 Intake & Output 01/17/24 01/18/24 01/18/24 18:59 06:59 18:59 Intake Total 598 Balance 598 Intake: Oral 598 Other: # Voids 2 2 - Labs CBC & Chem 7: 01/15/24 18:06 01/18/24 07:07 Labs: Abnormal Lab Results - Last 24 Hours (Table) 0401/17/24 01/17/24 Range/Units 11:57 17:20 21:28 Glucose (74-99) mg/dL POC Glucose (mg/dL) 167 H 271 H (70-110) mg/dL Uric Acid 9.2 H (3.5-8.5) mg/dL C-Reactive Protein (<1.0) mg/dL 01/18/24 01/18/24 01/18/24 Range/Units 05:55 07:07 11:57 Glucose 185 H (74-99) mg/dL POC Glucose (mg/dL) 198 H 144 H (70-110) mg/dL Uric Acid (3.5-8.5) mg/dL C-Reactive Protein 4.5 H (<1.0) mg/dL
[2024-01-18 12:16] LABS: HCT 40.7 % (39.0-53.0); HGB 13.2 gm/dL (13.0-17.5); MCH 29.3 pg (25.0-35.0); MCHC 32.4 g/dL (31.0-37.0); MCV 90.3 fL (80.0-100.0); Platelet Count 283 k/uL (150-450); RBC 4.51 m/uL (4.30-5.90); RDW 12.2 % (11.5-15.5); WBC 12.4 k/uL (3.8-10.6)
[2024-01-18] MEDS: COLCHICINE 0.6 MG EACH PO ONE (12:28)
[2024-01-18 17:35] LABS: Glucose,Whole Blood 192 mg/dL (70-110)
[2024-01-18 20:24] LABS: Glucose,Whole Blood 248 mg/dL (70-110)
[2024-01-18] MEDS: MELATONIN 5 MG TABLET PO SCH (21:57)
[2024-01-19 06:15] LABS: Glucose,Whole Blood 171 mg/dL (70-110)
[2024-01-19] MEDS: COLCHICINE 0.6 MG EACH PO SCH (08:17)
[2024-01-19 08:21] VITALS: RESP 16
[2024-01-19 12:25] LABS: Glucose,Whole Blood 154 mg/dL (70-110)
[2024-01-19] MEDS ORDERED: PROPOFOL 10 MG/ML 20 ML VIAL IV ONE (14:22)
[2024-01-19] MEDS ORDERED: LIDOCAINE 1% INJ 10MG/ML (20 ML MDV) ONE (14:22)
--- NOTE | 2024-01-19 14:31 | P.OP ---
Date of Procedure: 01/19/24 Preoperative Diagnosis: epigastric pain Postoperative Diagnosis: peptic ulcer disease, antral ulceration Procedure(s) Performed: EGD Anesthesia: MAC Surgeon: Raúl Hernandez Pathology: other (antrum) Condition: stable Disposition: PACU Description of Procedure: the patient's placed on the endoscopy table in the lateral position. He received IV sedation. The gastroscope placed oropharynx passed in the esophagus and stomach. Scope was then placed through the pylorus. The first and second portion of the duodenum appeared normal. Scope was then brought back the antrum this appeared to be ulcerated. A biopsies performed. The scope was unretroflexed and remainder the stomach appeared normal. The GE junction was at 40 cmis. The distal esophagus appeared normal. The proximal esophagus appeared normal. Scope withdrawn for patient.
--- NOTE | 2024-01-19 15:59 | P.PN ---
Subjective Progress Note Date: 01/19/24 CHIEF COMPLAINT: Epigastric pain HISTORY OF PRESENT ILLNESS: Patient status post EGD revealing peptic ulcer disease, antral ulceration. Vital stable PHYSICAL EXAM: VITAL SIGNS: Reviewed. GENERAL: Well-developed in no acute distress. ABDOMEN: Soft. Nondistended. NEUROLOGIC: Alert and oriented. Cranial nerves II through XII grossly intact. ASSESSMENT: 1. Epigastric abdominal pain status post EGD revealing antral ulceration PLAN: -Patient can be discharged from surgical standpoint -Continue PPI Physician [employer] S[employer] note has been reviewed by physician. Signing provider agrees with the documented findings, assessment, and plan of care. Objective - Vital Signs Vital signs: Vital Signs Temp 97.5 F L 01/19/24 07:25 Pulse 53 L 01/19/24 07:25 Resp 16 01/19/24 07:25 BP 128/81 01/19/24 07:25 Pulse Ox 98 01/19/24 07:25 FiO2 Intake & Output 01/18/24 01/19/24 01/19/24 18:59 06:59 18:59 Intake Total 236 Balance 236 Intake: Oral 236 Other: # Voids 3 2 - Labs CBC & Chem 7: 01/18/24 11:49 01/18/24 07:07 Labs: Abnormal Lab Results - Last 24 Hours (Table) 01/18/24 01/18/24 01/18/24 Range/Units 11:49 11:57 17:34 WBC 12.4 H (3.8-10.6) k/uL POC Glucose (mg/dL) 144 H 192 H (70-110) mg/dL 01/18/24 01/19/24 Range/Units 20:23 06:14 WBC (3.8-10.6) k/uL POC Glucose (mg/dL) 248 H 171 H (70-110) mg/dL
[2024-01-19 17:14] VITALS: BP 99/57; PULSE 61; TEMP 97.6
[2024-01-19 17:24] LABS: Glucose,Whole Blood 263 mg/dL (70-110)
== END 2024-01-19 18:53 | disposition home or self-care (01) | DRG 384 ==
LOC: EC 17:35 → 6NMEDSUR 20:20 → OBSVTOIN 20:21 → 6NMEDSUR 20:37
PROVIDERS: ADMIT Family Medicine; ATTEND Family Medicine
PROC: 0DB78ZX Excision of Stomach, Pylorus, Via Natural or Artificial Opening Endoscopic, Diagnostic (ICD-10-PCS; principal; 2024-01-19 08:20)
DX: K25.9 Gastric ulcer, unspecified as acute or chronic, without hemorrhage or perforation (principal); S82.891K Other fracture of right lower leg, subsequent encounter for closed fracture with nonunion; I25.10 Atherosclerotic heart disease of native coronary artery without angina pectoris; E78.5 Hyperlipidemia, unspecified; F17.210 Nicotine dependence, cigarettes, uncomplicated; M76.61 Achilles tendinitis, right leg; I10 Essential (primary) hypertension; Z79.82 Long term (current) use of aspirin; Z82.49 Family history of ischemic heart disease and other diseases of the circulatory system; Z87.11 Personal history of peptic ulcer disease; Z95.5 Presence of coronary angioplasty implant and graft; Z88.2 Allergy status to sulfonamides; Z79.899 Other long term (current) drug therapy; E11.9 Type 2 diabetes mellitus without complications
CPT/HCPCS: 36415; 43239; 71046; 71275; 80048; 80053; 80061; 83036; 83735; 83880; 84484; 84550; 85025; 85027; 85379; 85610; 85730; 86140; 88305; 88342; 93005; 93306; 96374; 96375; 96376; 99285

== ENCOUNTER → 2024-02-09 | Outpatient (CLI) | payer BC ==
[2024-02-09 14:57] LABS: ALT 35 U/L (10-49); AST 24 U/L (14-35); Albumin 4.8 g/dL (3.8-4.9); Albumin/Globulin Ratio 2.09 Ratio (1.60-3.17); Alkaline Phosphatase 68 U/L (41-126); BUN/Creat Ratio 11.22 Ratio (12.00-20.00); Blood Urea Nitrogen 10.1 mg/dL (9.0-27.0); Chloride 103 mmol/L (96-109); Globulin 2.3 g/dL (1.6-3.3); Glucose 123 mg/dL (70-110); Potassium 4.1 mmol/L (3.5-5.5); Sodium 142 mmol/L (135-145); Total Bilirubin 0.5 mg/dL (0.3-1.2); Total Protein 7.1 g/dL (6.2-8.2)
[2024-02-09 15:06] LABS: Hepatitis C IgG Antibody Reactive (Nonreactive)
== END | disposition home or self-care (01) ==
LOC: LABWHC1 09:46
PROVIDERS: ATTEND Family Medicine
DX: B19.20 Unspecified viral hepatitis C without hepatic coma (principal); Z79.899 Other long term (current) drug therapy
CPT/HCPCS: 36415; 80053; 86803; 87522